=== PATIENT | female | born 1985 | race Caucasian/White ===

== ENCOUNTER 2021-09-17 00:24 | Emergency (ER) | payer OTHER ==
[~2021-09-17] VITALS: Ht 160 cm; Wt 65.9 kg
[2021-09-17 00:26] VITALS: BP 124/52
[2021-09-17] MEDS ORDERED: NEURONTIN300 M1 PO (00:38)
[2021-09-17] MEDS ORDERED: XYZBAC TABLET1 EACH PO (00:38)
[2021-09-17] MEDS ORDERED: ZANAFLEX2 M2 PO (00:40)
== END 2021-09-17 01:31 | disposition home or self-care (01) ==
LOC: ED 00:24
DX: I83.018 Varicose veins of right lower extremity with ulcer other part of lower leg (principal); L97.819 Non-pressure chronic ulcer of other part of right lower leg with unspecified severity; I77.6 Arteritis, unspecified; Z28.310 Unvaccinated for COVID-19